=== PATIENT | male | born 1960 | race Caucasian/White ===

== ENCOUNTER 2019-01-22 04:34 | Inpatient (IN) | payer OTHER ==
[2019-01-22] MEDS ORDERED: Ondansetron PF 4 MG/2 ML Vial ONE ×2 (04:48→14:48)
[2019-01-22] MEDS ORDERED: Morphine 4 MG/ML VIAL ONE (04:48)
[2019-01-22] MEDS ORDERED: Fentanyl 100 MCG/2 ML VIAL ONE ×2 (05:23→06:43)
[2019-01-22] MEDS ORDERED: Famotidine/PF 20 mg/2ml Vial ONE (06:43)
[2019-01-22] MEDS ORDERED: Midazolam HCl 2 mg/2 ml Vial ONE (06:46)
--- NOTE | 2019-01-22 06:59 | HP ---
CHIEF COMPLAINT: Abdominal pain, severe. HISTORY OF PRESENT ILLNESS: This is a 58-year-old male with a history of mitral valve prolapse and schizoaffective disorder, who presents with a history of severe abdominal pain since , described as crampy and diffuse. This was associated with nausea, but no vomiting. He has not had a bowel movement. He was seen in [facility], where a CT scan revealed volvulus of the mesentery including the SMA and SMV associated with an internal hernia. His pain is now waxing and waning, but when it occurs, it is 10/10 and sharp. PAST MEDICAL HISTORY: Schizoaffective disorder, hypothyroidism, and dyslipidemia. PAST SURGICAL HISTORY: Thyroid cyst. MEDICATIONS: 1. Geodon. 2. Statin. 3. Calcium. 4. Aspirin. 5. Glucosamine. 6. Centrum. ALLERGIES: RISPERDAL. SOCIAL HISTORY: No smoking, alcohol, or other drugs. REVIEW OF SYSTEMS: Ten-system review of systems is otherwise negative except as described above. PHYSICAL EXAMINATION: VITAL SIGNS: Blood pressure 148/86, pulse 59, respirations 20. He is afebrile. HEENT: Sclerae anicteric. Oropharynx clear. NECK: No lymphadenopathy. CHEST: Clear. HEART: Regular rate and rhythm. ABDOMEN: Soft, diffusely tender with guarding, but no rebound. No abdominal or inguinal hernias. EXTREMITIES: No ischemia or edema to extremities. LABORATORY DATA: White blood cell count is elevated. Electrolytes are normal. CT scan shows volvulus of the base of the mesentery including SMV and SMA associated with an internal hernia, significant edema to the retroperitoneal structures. ASSESSMENT: Volvulus to mesentery and question of internal hernia. PLAN: Exploratory laparotomy. Risks, benefits, and alternatives were discussed. He gives consent. We will do this, this morning. Job ID: [id number]
[2019-01-22] MEDS ORDERED: cefOXitin 2 GM VIAL ONE (07:06)
[2019-01-22] MEDS ORDERED: Ondansetron HCl/PF 4 MG/2 ML Vial IVP PRN (08:30)
[2019-01-22] MEDS ORDERED: Promethazine HCl 25 MG/ML VIAL SLOW IVP PRN (08:30)
[2019-01-22] MEDS ORDERED: Promethazine HCl 25 MG/ML VIAL IM PRN ×3 (08:30→09:24)
[2019-01-22] MEDS ORDERED: Ondansetron PF 4 MG/2 ML Vial IVP PRN ×2 (08:31→09:24)
[2019-01-22] MEDS ORDERED: diphenhydrAMINE 25 MG CAP PO PRN (08:31)
[2019-01-22] MEDS ORDERED: fentaNYL Citrate/PF 2,000 MCG in Sodium Chloride 0.9% 60 ML IV PRN (08:31)
[2019-01-22] MEDS ORDERED: diphenhydrAMINE 50 MG/ML VIAL IM PRN (08:31)
[2019-01-22] MEDS ORDERED: diphenhydrAMINE 50 MG/ML VIAL IVP PRN (08:31)
[2019-01-22] MEDS ORDERED: Naloxone HCl 0.4 mg/ml Vial IV PRN (08:31)
[2019-01-22] MEDS ORDERED: Zolpidem Tartrate 5 MG TAB PO PRN (08:31)
[2019-01-22] MEDS ORDERED: Communication Order-Pharmacy FS SCH (08:45)
[2019-01-22] MEDS ORDERED: hydrALAZINE 20 MG/ML VIAL SLOW IVP PRN (09:24)
[2019-01-22] MEDS ORDERED: cefOXitin 2 GM in Sodium Chloride 0.9% 100 ML IVPB SCH (09:24)
[2019-01-22 09:38] VITALS: BMI 25.4
[2019-01-22] MEDS: D5 1/2 NS w/20 mEq KCL 1,000 ML IV SCH ×2 (09:56→20:30)
[2019-01-22] MEDS ORDERED: Acetaminophen 1,000 MG in Premix Bag 1 BAG IVPB SCH (12:00)
--- NOTE | 2019-01-22 12:05 | OP ---
DATE OF PROCEDURE: 01/22/2019 PREOPERATIVE DIAGNOSIS: Mesenteric volvulus. POSTOPERATIVE DIAGNOSES: Mesenteric volvulus plus jejunal mesenteric diverticulum, inflamed. PROCEDURES PERFORMED: Exploratory laparotomy, reduction of mesenteric volvulus, small bowel resection and anastomosis. ANESTHESIA: General. ESTIMATED BLOOD LOSS: 50 mL. COMPLICATIONS: None. FINDINGS: There was a large mesenteric diverticulum on the small intestine in the jejunum that appears locally inflamed, and it appears this was partially perforated and stuck to the retroperitoneum causing a twist and internal hernia. The small bowel appeared ischemic on entry; however, the ischemia resolved after untwisting the mesentery. DESCRIPTION OF PROCEDURE: The patient was taken to the operating room and laid supine on the operating room table. After general anesthetic was obtained, a Christensen was placed. The abdomen was shaved, prepped, and draped in a sterile fashion. Midline incision was made. Cautery was dissected down to and into the abdominal cavity. There was ischemic appearing small intestine. This was eviscerated, reduced, and it pinked up quickly. There was a large mesenteric diverticulum found. This was the source of the twist as it was adhesed to the retroperitoneum causing an internal hernia and twist. Because the ischemia completely resolved decision was made to resect this area, YOEL 75 stapler was fired across the intestine proximal and distal. The mesentery was taken using Impact LigaSure. A [id number] anastomosis was performed. The common enterotomy was sewn using 2-0 Vicryl. Crotch stitch was placed using silk suture. Mesenteric defect was closed using silk suture. The abdomen was irrigated. All instrument counts, needle counts, and lap counts were correct. Small bowel was put back into the abdominal cavity in the normal orientation. PDS was used to close the midline fascia from top to bottom tied in the middle. Subcutaneous tissues were irrigated, closed using 3-0 Vicryl, 4-0 Monocryl, and Dermabond. The patient was sent to Recovery in stable condition. All instrument counts, needle counts, and lap counts were correct. Job ID: [id number]
[2019-01-22] MEDS: cefOXitin Sodium/Dextrose,Iso 2 GM in Premix Bag 1 BAG IVPB SCH ×2 (14:37→21:20)
[2019-01-22] MEDS ORDERED: PROPOFOL 200 MG/20 ML VIAL ONE (14:48)
[2019-01-22] MEDS ORDERED: Succinylcholine Chloride 20 MG/ML 10 ml SYRINGE FS ONE (14:48)
[2019-01-22] MEDS ORDERED: Ketorolac Tromethamine 30 MG/ML VIAL ONE (14:48)
[2019-01-22] MEDS ORDERED: Rocuronium Bromide 10 MG/ML (10ML VIAL) ONE (14:48)
[2019-01-22] MEDS ORDERED: Lidocaine 1% PF 5 ML VIAL ONE (14:48)
[2019-01-22] MEDS ORDERED: Glycopyrrolate 0.2 MG/ML 5 ML SYRINGE ONE (14:48)
[2019-01-22] MEDS: Acetaminophen 1,000 MG in Premix Bag 1 BAG IVPB SCH (20:31)
[2019-01-22] MEDS: Enoxaparin Sodium 40 MG/0.4 ML SYRINGE SC SCH (20:31)
[2019-01-22] MEDS: Famotidine 20 MG TAB PO SCH (20:31)
[2019-01-22] MEDS: Famotidine/PF 20 mg/2ml Vial SLOW IVP SCH (20:53)
[2019-01-23] MEDS: Acetaminophen 1,000 MG in Premix Bag 1 BAG IVPB SCH ×2 (02:22→08:29)
[2019-01-23 04:29] LABS: #Lymphocytes 0.7 thou/uL (1.20-3.40); #Monocytes 0.5 thou/uL (0.11-0.59); #Neutrophils 4.9 thou/uL (1.40-6.50); %Basophils 0.3 % (0.0-1.0); %Eosinophils 0.1 % (0.0-10.0); %Lymphocytes 11.4 % (21.0-51.0); %Monocytes 8.4 % (0.0-10.0); %Neutrophils 79.8 % (42.0-75.0); Hemoglobin 12.6 g/dL (14.0-18.0); Mean Corpuscular HGB CONC 33.4 g/dL (32.0-36.0); Mean Corpuscular Hemoglobin 33.5 pg (27.0-31.0); Mean Platelet Volume 8.6 fL (7.4-10.4); Platelet Count 120 thou/uL (130-400); RBC Distribution Width 12.1 % (11.5-14.5); Red Blood Cell (RBC) Count 3.76 mill/uL (4.70-6.10); White Blood Cell (WBC) Count 6.2 thou/uL (4.8-10.8)
[2019-01-23 04:53] LABS: Anion Gap 7 mmol/L (10-20); BUN (Urea Nitrogen) 11 mg/dL (8.4-25.7); Calc. Creatinine Clearance 113 mL/min (70-130); Calcium 8.4 mg/dL (7.8-10.44); Carbon Dioxide 30 mmol/L (22-29); Chloride 104 mmol/L (98-107); Estimated GFR-MDRD Greater than 90; Glucose 121 mg/dL (70-105); Potassium 4.5 mmol/L (3.5-5.1); Sodium 136 mmol/L (136-145)
[2019-01-23] MEDS: D5 1/2 NS w/20 mEq KCL 1,000 ML IV SCH ×2 (06:52→18:04)
--- NOTE | 2019-01-23 08:17 | PDOC.GSPN ---
Surgery Progress Note: Subj - Subjective Patient reports: pain well controlled, no flatus Surgery Progress Note: Obj - Vital signs Vital signs: Vital Signs - Most Recent Temp Pulse Resp BP Pulse Ox 97.8 F 62 16 104/69 94 L 01/23/19 07:30 01/23/19 07:30 01/23/19 07:30 01/23/19 07:30 01/23/19 07:30 - Physical Exam General: no distress Cardiovascular: regular rate and rhythm Respiratory: clear to auscultation Abdomen: soft, appropriately tender Wound: healing well Surgery Progress Note: Results - Labs Result Diagrams: 01/23/19 04:03 01/23/19 04:03 Lab results: Laboratory Results - last 24 hr 01/23/19 01/23/19 04:03 04:03 WBC 6.2 RBC 3.76 L Hgb 12.6 L Hct 37.6 L MCV 100.0 H MCH 33.5 H MCHC 33.4 RDW 12.1 Plt Count 120 L MPV 8.6 Neutrophils % 79.8 H Lymphocytes % 11.4 L Monocytes % 8.4 Eosinophils % 0.1 Basophils % 0.3 Neutrophils # 4.9 Lymphocytes # 0.7 L Monocytes # 0.5 Eosinophils # 0.0 Basophils # 0.0 Sodium 136 Potassium 4.5 Chloride 104 Carbon Dioxide 30 H Anion Gap 7 L BUN 11 Creatinine 0.86 Estimated GFR (MDRD) Greater than 90 Glucose 121 H Calcium 8.4 Surgery Progress Note: A/P - Problem (1) Volvulus of intestine Current Visit: Yes Code(s): K56.2 - VOLVULUS Status: Acute Assessment and Plan: From intestinal diverticulum - Plan Plan: POD 1 -clears today -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
[2019-01-23] MEDS: Famotidine 20 MG TAB PO SCH ×2 (08:29→20:30)
[2019-01-23] MEDS: Famotidine/PF 20 mg/2ml Vial SLOW IVP SCH ×2 (08:30→20:38)
[2019-01-23] MEDS ORDERED: Atorvastatin Calcium 40 MG TAB PO SCH (09:00)
[2019-01-23] MEDS ORDERED: ZIPRASIDONE HCL 80 MG PO SCH (09:00)
[2019-01-23] MEDS ORDERED: Levothyroxine Sodium 125 MCG TAB PO SCH ×2 (09:00→10:00)
[2019-01-23] MEDS: Enoxaparin Sodium 40 MG/0.4 ML SYRINGE SC SCH (20:30)
[2019-01-23] MEDS: Atorvastatin Calcium 40 MG TAB PO SCH (20:30)
[2019-01-24] MEDS: Levothyroxine Sodium 125 MCG TAB PO SCH (05:15)
[2019-01-24] MEDS: D5 1/2 NS w/20 mEq KCL 1,000 ML IV SCH (05:24)
[2019-01-24] MEDS: Famotidine 20 MG TAB PO SCH ×2 (08:07→20:44)
[2019-01-24] MEDS: Famotidine/PF 20 mg/2ml Vial SLOW IVP SCH ×2 (08:08→20:46)
[2019-01-24] MEDS ORDERED: Fentanyl 100 MCG/2 ML VIAL SLOW IVP PRN ×2 (12:10)
--- NOTE | 2019-01-24 12:10 | PDOC.GSPN ---
Surgery Progress Note: Subj - Subjective Narrative: No flatus yet. Feels bloated Surgery Progress Note: Obj - Vital signs Vital signs: Vital Signs - Most Recent Temp Pulse Resp BP Pulse Ox 97.8 F 69 16 131/89 92 L 01/24/19 11:49 01/24/19 11:49 01/24/19 11:49 01/24/19 11:49 01/24/19 11:49 - Physical Exam General: no distress Respiratory: breath sounds present Abdomen: appropriately tender, distended Wound: healing well Surgery Progress Note: Results - Labs Result Diagrams: 01/23/19 04:03 01/23/19 04:03 Surgery Progress Note: A/P - Problem (1) Volvulus of intestine Current Visit: Yes Code(s): K56.2 - VOLVULUS Status: Acute - Plan Plan: POD 2 -expected postop ileus persists -stay on clears until more bowel function
[2019-01-24] MEDS ORDERED: Acetaminophen 1,000 MG in Premix Bag 1 BAG IVPB PRN (12:11)
[2019-01-24] MEDS: Atorvastatin Calcium 40 MG TAB PO SCH (20:45)
[2019-01-24] MEDS: Enoxaparin Sodium 40 MG/0.4 ML SYRINGE SC SCH (20:45)
[2019-01-25] MEDS: Levothyroxine Sodium 125 MCG TAB PO SCH (06:02)
[2019-01-25] MEDS ORDERED: traMADol HCl 50 MG TAB PO PRN (08:01)
--- NOTE | 2019-01-25 08:04 | PDOC.GSPN ---
Surgery Progress Note: Subj - Subjective Patient reports: no new complaints Surgery Progress Note: Obj - Vital signs Vital signs: Vital Signs - Most Recent Temp Pulse Resp BP Pulse Ox 98.1 F 59 L 16 116/71 94 L 01/25/19 07:48 01/25/19 07:48 01/25/19 07:48 01/25/19 07:48 01/25/19 07:48 - Physical Exam General: no distress Abdomen: soft, nondistended, positive bowel sounds, appropriately tender Wound: healing well Surgery Progress Note: Results - Labs Result Diagrams: 01/23/19 04:03 01/23/19 04:03 Surgery Progress Note: A/P - Problem (1) Volvulus of intestine Current Visit: Yes Code(s): K56.2 - VOLVULUS Status: Acute - Plan Plan: Advance diet -add norco -full liquids -home tomorrow if tolerates fulls
[2019-01-25] MEDS: Famotidine 20 MG TAB PO SCH ×2 (08:16→20:36)
[2019-01-25] MEDS: Famotidine/PF 20 mg/2ml Vial SLOW IVP SCH ×2 (08:18→20:57)
[2019-01-25] MEDS: HYDROcodone/Acetaminophen 7.5/325 mg Tablet PO PRN (08:22)
[2019-01-25] MEDS: Atorvastatin Calcium 40 MG TAB PO SCH (20:35)
[2019-01-25] MEDS: Enoxaparin Sodium 40 MG/0.4 ML SYRINGE SC SCH (20:36)
[2019-01-26] MEDS: Levothyroxine Sodium 125 MCG TAB PO SCH (06:39)
[2019-01-26] MEDS: Famotidine/PF 20 mg/2ml Vial SLOW IVP SCH (08:52)
[2019-01-26] MEDS: Famotidine 20 MG TAB PO SCH (08:52)
[2019-01-26 08:59] VITALS: TEMP 98.4
[2019-01-26] MEDS: HYDROcodone/Acetaminophen 7.5/325 mg Tablet PO PRN (10:55)
[2019-01-26 12:08] VITALS: BP 112/63
--- NOTE | 2019-01-26 15:31 | DIS ---
DATE OF ADMISSION: 01/22/2019 DATE OF DISCHARGE: 01/26/2019 ADMITTING DIAGNOSES: Small-bowel mesenteric volvulus and perforated mesenteric diverticulum. DISCHARGE DIAGNOSES: Small-bowel mesenteric volvulus and perforated mesenteric diverticulum. PROCEDURES PERFORMED: Exploratory laparotomy and small-bowel resection by Sumanth without complication. CONDITION ON DISCHARGE: Improved. STAFF: Erich Julio MD HOSPITAL COURSE: Postop course was uneventful. His postop expected ileus slowly resolved. On the day of discharge, he is tolerating full liquid diet. He is discharged to home. Prescription given for hydrocodone and Zofran, sent to [facility] on [address]. He will follow up with me in the office in 2 weeks. Job ID: [id number]
== END 2019-01-26 13:30 | disposition home or self-care (01) | DRG 330 ==
LOC: ERS 04:34 → SDC 08:20 → SURG A 09:34
PROVIDERS: ADMIT Surgery; ATTEND Surgery
PROC: 0DS80ZZ Reposition Small Intestine, Open Approach (ICD-10-PCS; principal; 2019-01-22)
PROC: 0DB80ZZ Excision of Small Intestine, Open Approach (ICD-10-PCS; 2019-01-22)
DX: K56.2 Volvulus (principal); K57.00 Diverticulitis of small intestine with perforation and abscess without bleeding; K56.7 Ileus, unspecified; F25.9 Schizoaffective disorder, unspecified; E03.9 Hypothyroidism, unspecified; E78.5 Hyperlipidemia, unspecified; K46.9 Unspecified abdominal hernia without obstruction or gangrene; E11.9 Type 2 diabetes mellitus without complications; Z79.899 Other long term (current) drug therapy; Z79.82 Long term (current) use of aspirin; Z88.8 Allergy status to other drugs, medicaments and biological substances
CPT/HCPCS: 36415; 36416; 80048; 85025; 88307; 96361; 96374; 96375; J0131; J0694; J1650; J1885; J2001; J2250; J2270; J2405; J2704; J3010; J3490; S0028